=== PATIENT | male | born 1980 | race Caucasian/White ===

== ENCOUNTER 2018-05-06 18:18 | Emergency (ER) | payer SELFPAY ==
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
[2018-05-06 19:15] LABS: URINE BILIRUBIN NEGATIVE (NEGATIVE); URINE BLOOD TRACE (NEGATIVE); URINE CLARITY Clear (Clear); URINE COLOR Straw (YELLOW); URINE GLUCOSE (UA) NORMAL (Normal); URINE LEUKOCYTE ESTERASE NEG Leu/uL (Negative); URINE PROTEIN NEGATIVE (NEGATIVE); URINE UROBILINOGEN NORMAL mg/dL (0.2-1.0)
[2018-05-06 20:45] VITALS: BP 128/86; PULSE 86; RESP 18; TEMP 98.6
[2018-05-06 20:49] VITALS: O2SAT 98
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
== END 2018-05-06 20:45 | disposition home or self-care (01) ==
LOC: C.ER 18:18
DX: S30.1XXA Contusion of abdominal wall, initial encounter (principal); V18.4XXA Pedal cycle driver injured in noncollision transport accident in traffic accident, initial encounter; Y92.9 Unspecified place or not applicable